=== PATIENT | male | born 1990 | race Two or more races ===

== ENCOUNTER 2016-07-29 09:06 | Emergency (ER) | payer BC, OTHER ==
[2016-07-29 09:16] VITALS: BP 154/68
[2016-07-29] MEDS ORDERED: AZITHROMYCIN 250 MG TABLET PO ONE (09:48)
[2016-07-29] MEDS ORDERED: CEFTRIAXONE INJ 250 MG VIAL IM ONE (09:48)
[2016-07-29] MEDS ORDERED: LIDOCAINE 1% INJ-PF (10 MG/ML) 30 ML SDV INJ ONE (09:48)
--- NOTE | 2016-07-29 09:50 | ER Document Report ---
HPI - HPI Patient complains to provider of: dysuria Onset: Other - 4 days Onset/Duration: Persistent Quality of pain: Burning Pain Level: 4 Context: Patient complains of dysuria and creamy white discharge from the penis for the past 4 days. Patient denies any concerns about possible sexually transmitted infection. Patient denies any fever abdominal pain. Associated Symptoms: Other - Penile discharge. denies: Fever Exacerbated by: Denies Relieved by: Denies Similar symptoms previously: No Recently seen / treated by doctor: No - ROS ROS below otherwise negative: Yes Systems Reviewed and Negative: Yes All other systems reviewed and negative - CONSTITUTIONAL Constitutional: DENIES: Fever, Chills - GASTROINTESTINAL Gastrointestinal: DENIES: Abdominal Pain, Nausea - URINARY Urinary: REPORTS: Dysuria - MUSCULOSKELETAL Musculoskeletal: DENIES: Extremity pain - DERM Skin Color: Normal Past Medical History - General Information source: Patient - Social History Smoking Status: Current Every Day Smoker Chew tobacco use (# tins/day): No Frequency of alcohol use: Occasional Drug Abuse: None Family History: Reviewed & Not Pertinent Patient has suicidal ideation: No Patient has homicidal ideation: No - Medical History Medical History: Negative Renal/ Medical History: Denies: Hx Peritoneal Dialysis Surgical Hx: Negative - Immunizations Hx Diphtheria, Pertussis, Tetanus Vaccination: No Vertical Provider Document - CONSTITUTIONAL Agree With Documented VS: Yes Exam Limitations: No Limitations General Appearance: WD/WN, No Apparent Distress - INFECTION CONTROL TRAVEL OUTSIDE OF THE [place] IN LAST 30 DAYS: No - HEENT HEENT: Atraumatic, Normal ENT Exam - NECK Neck: Normal Inspection, Supple - RESPIRATORY Respiratory: Breath Sounds Normal, No Respiratory Distress, Chest Non-Tender O2 Sat by Pulse Oximetry: 96 - CARDIOVASCULAR Cardiovascular: Regular Rate, Regular Rhythm, No Murmur - REPRODUCTIVE Male Genitalia: Abnormal Inspection - clear discharge from urethra, no inguinal lymphadenopathy, no abnormal skin lesions, no scrotal tenderness or swelling - BACK Back: Normal Inspection. negative: CVA Tenderness-Right, CVA Tenderness-Left - MUSCULOSKELETAL/EXTREMETIES Musculoskeletal/Extremeties: MAEW - NEURO Level of Consciousness: Awake, Alert, Appropriate Motor/Sensory: No Motor Deficit, No Sensory Deficit - DERM Integumentary: Warm, Dry, No Rash Course - Re-evaluation Re-evalutation: 07/29/16 10:56 The patient has been informed that they may have pre-hypertension or hypertension based on a blood pressure reading in the emergency department. I recommend that patient call the primary care provider listed on their discharge instructions or a physician of their choice by this week to arrange follow-up for further evaluation of possible pre-hypertension her hypertension. - Vital Signs Vital signs: Temp Pulse Resp BP Pulse Ox 98.1 F 97 20 154/68 H 96 07/29/16 09:14 07/29/16 09:14 07/29/16 09:14 07/29/16 09:14 07/29/16 09:14 - Laboratory Laboratory results interpreted by me: 07/29/16 10:56 Labs- Entire Visit 07/29/16 09:40 Urine Color YELLOW Urine Appearance SLIGHTLY-CLOUDY Urine pH 7.0 Ur Specific Meigs 1.024 Urine Protein NEGATIVE Urine Glucose (UA) NEGATIVE Urine Ketones NEGATIVE Urine Blood NEGATIVE Urine Nitrite NEGATIVE Urine Bilirubin NEGATIVE Urine Urobilinogen NEGATIVE Ur Leukocyte Esterase SMALL H Urine WBC (Auto) 45 Urine RBC (Auto) 5 Urine Bacteria (Auto) TRACE Amorphous Sediment Auto TRACE Urine Mucus (Auto) RARE Urine Ascorbic Acid 40 H Discharge - Discharge Clinical Impression: Urethritis, Elevated blood pressure reading Condition: Stable Disposition: HOME, SELF-CARE Instructions: Urethritis ([facility]), Rocephin ([facility]), Doxycycline ([facility]) Additional Instructions: Return immediately for any new or worsening symptoms Followup with your primary care provider, call tomorrow to make a followup appointment Your blood pressure was mildly elevated today, recheck with her primary doctor to have this reevaluated within the next several days. Cultures are pending we will call if you need any different treatment. You may go to the health department if you seek additional testing for STD such as HIV. Prescriptions: Doxycycline Hyclate 100 mg PO BID #20 capsule Forms: Elevated Blood Pressure [facility] - Follow up in 3-5 days
[2016-07-29 10:03] LABS: AMORPHOUS SEDIMENT,URINE TRACE /HPF; APPEARANCE,URINE SLIGHTLY-CLOUDY; BILIRUBIN,URINE NEGATIVE (NEGATIVE); GLUCOSE, URINE NEGATIVE (NEGATIVE); KETONES,URINE NEGATIVE (NEGATIVE); LEUKOCYTE ESTERASE,URINE SMALL (NEGATIVE); NITRITE,URINE NEGATIVE (NEGATIVE); PROTEIN,URINE NEGATIVE (NEGATIVE); URINE SPECIFIC GRAVITY 1.024; UROBILINOGEN,URINE NEGATIVE mg/dL (<2.0)
[2016-07-29 11:25] LABS: CHLAM PCR NOT DETECTED (NOT DETECT)
== END 2016-07-29 11:05 | disposition home or self-care (01) ==
LOC: ER 09:06
DX: N34.2 Other urethritis (principal); R03.0 Elevated blood-pressure reading, without diagnosis of hypertension; F17.200 Nicotine dependence, unspecified, uncomplicated
CPT/HCPCS: 99283; 96372; 87086; 81001; 87491; 87591; J3490; J0696